=== PATIENT | female | born 1960 | race Caucasian/White ===

== ENCOUNTER 2019-04-10 19:24 | Inpatient (IN) | payer BC ==
[~2019-04-10] VITALS: Ht 162.6 cm; Wt 89.0 kg
[2019-04-10 19:57] VITALS: BP 102/65
[2019-04-10] MEDS ORDERED: LISI10TA5 PO (19:57)
[2019-04-10] MEDS ORDERED: SERT100T PO (19:57)
[2019-04-10] MEDS ORDERED: ASPI-1497 PO (19:57)
[2019-04-10] MEDS ORDERED: PANT40TA4 PO (19:57)
[2019-04-10] MEDS ORDERED: ATOR20TA65 PO (19:57)
[2019-04-10 20:14] VITALS: BP 102/65
[2019-04-10] MEDS ORDERED: CLONIDINE 0.1MG TABLET PO PRN (20:15)
[2019-04-10] MEDS ORDERED: HYDROCODONE/ACETAMINOPHEN 5/325MG TABLET PO PRN (20:15)
[2019-04-10] MEDS ORDERED: DOCUSATE SODIUM 250MG CAPSULE PO PRN (20:15)
[2019-04-10] MEDS ORDERED: ACETAMINOPHEN 325MG TABLET PO PRN (20:15)
[2019-04-10] MEDS ORDERED: ONDANSETRON HCL 4MG/2ML INJ IV PRN (20:15)
[2019-04-10] MEDS: ATORVASTATIN CALCIUM 40MG TABLET PO SCH (21:27)
[2019-04-10] MEDS ORDERED: NA PHOS,M-B/NA PHOS,DI-BA ENEMA 118ML PR PRN (21:30)
[2019-04-10] MEDS ORDERED: ZOLPIDEM TARTRATE 5MG TABLET PO PRN (21:30)
[2019-04-10] MEDS ORDERED: IPRATROPIUM/ALBUTEROL 0.5-3(2.5)MG/3ML NEB NEB PRN (21:30)
[2019-04-10] MEDS ORDERED: GUAIFENESIN 200MG/10ML SUGAR FREE UDC PO PRN (21:30)
[2019-04-10] MEDS ORDERED: NITROGLYCERIN 0.4MG TABLET SL SL PRN (21:30)
[2019-04-10 23:50] VITALS: BP 95/59
[2019-04-11] MEDS: MORPHINE SULFATE 2 MG/ML CPJ (NOT FOR IM USE) IV PRN ×3 (01:42→18:18)
[2019-04-11 04:00] VITALS: BP 105/72
[2019-04-11] MEDS: KETOROLAC 15MG/ML VIAL IV PRN ×2 (05:21→13:18)
[2019-04-11] MEDS ORDERED: PANTOPRAZOLE 40MG DR TABLET PO SCH (07:20)
[2019-04-11] MEDS ORDERED: METF-415 PO (07:26)
[2019-04-11 08:00] VITALS: BP 141/66
[2019-04-11 08:02] LABS: PROTHROMBIN TIME 11.3 sec (9.6-11.0)
[2019-04-11 08:03] LABS: BASOPHILS % 0.4 % (0.0-2.0); EOSINOPHILS % 1.2 % (0.0-5.0); HEMATOCRIT. 36.7 % (36.0-48.0); HEMOGLOBIN. 12.5 g/dL (12.0-16.0); LYMPHOCYTES % 10.1 % (20.0-50.0); MEAN CORPUSCULAR HEMOGLOBIN 31.2 pg (28.0-32.0); MEAN CORPUSCULAR VOLUME 91.4 fL (81.0-99.0); MEAN PLATELET VOLUME 9.2 fl (7.4-10.4); MONOCYTES % 12.3 % (2.0-8.0); PLATELET 311 x1000/uL (130-400); RED BLOOD CELL COUNT 4.02 mill/uL (4.2-5.4); RED CELL DISTRIBUTION WIDTH 13.6 % (11.6-14.6)
[2019-04-11 08:20] LABS: CHLORIDE 98 mEq/L (98-107)
[2019-04-11 08:33] LABS: LDL CHOLESTEROL 57 mg/dL (5-100); PHOSPHORUS 3.4 mg/dL (2.5-4.9)
[2019-04-11 08:35] LABS: HDL CHOLESTEROL 44 mg/dL (40-59)
[2019-04-11] MEDS ORDERED: ENOXAPARIN 40MG/0.4ML SYR SUBCUT SCH (09:30)
[2019-04-11] MEDS ORDERED: DEXTROSE 50% WATER 50ML SYRINGE IV PRN (09:30)
[2019-04-11] MEDS: FAMOTIDINE 20MG TABLET PO SCH ×2 (10:07→20:43)
[2019-04-11] MEDS: LISINOPRIL 10MG TABLET PO SCH (10:07)
[2019-04-11] MEDS: SERTRALINE HCL 100MG TABLET PO SCH (10:07)
[2019-04-11] MEDS: BLOOD SUGAR DIAGNOSTIC STRIP TEST SCH ×3 (12:45→20:43)
[2019-04-11] MEDS: INSULIN LISPRO 100 UNITS/ML SUBCUT SCH ×3 (13:26→20:43)
[2019-04-11] MEDS: ASPIRIN 325MG EC TABLET PO SCH (16:42)
[2019-04-11] MEDS: COLCHICINE 0.6MG TABLET PO SCH (16:42)
[2019-04-11 17:14] LABS: CLARITY URINE CLEAR (CLEAR); COLOR URINE YELLOW (YELLOW); KETONES URINE NEGATIVE (NEGATIVE); LEUKOCYTE ESTERASE URINE TRACE (NEGATIVE); NITRITE URINE NEGATIVE (NEGATIVE); OCCULT BLOOD URINE NEGATIVE (NEGATIVE); PROTEIN URINE NEGATIVE (NEGATIVE); SPECIFIC GRAVITY URINE 1.009 (1.005-1.030)
[2019-04-11 18:21] LABS: T4 FREE 1.36 ng/dL (0.76-1.46)
[2019-04-11 18:44] LABS: VITAMIN B12 SERUM 1088 pg/mL (211-911)
[2019-04-11 20:00] VITALS: BP 102/72
[2019-04-11] MEDS ORDERED: ALPRAZOLAM 0.25 MG TABLET PO PRN (20:15)
[2019-04-11] MEDS: ATORVASTATIN CALCIUM 40MG TABLET PO SCH (20:43)
[2019-04-11] MEDS ORDERED: DIPHENHYDRAMINE 25MG CAPSULE PO PRN (21:00)
[2019-04-11] MEDS ORDERED: BISACODYL 10MG SUPP PR PRN (21:00)
[2019-04-11] MEDS ORDERED: DOCUSATE SODIUM 100MG CAPSULE PO SCH (21:00)
[2019-04-12] VITALS (35 sets, daily range): BP systolic 88–130; BP diastolic 44–80
[2019-04-12] MEDS ORDERED: NOREPINEPHRINE 4 MG in DEXT 5% WATER 246 ML IV SCH (06:00)
[2019-04-12] MEDS ORDERED: EPINEPHRINE 4 MG in DEXT 5% WATER 246 ML IV SCH (06:00)
[2019-04-12 06:15] LABS: INR 1.1; PROTHROMBIN TIME 11.4 sec (9.6-11.0)
[2019-04-12 06:20] LABS: BASOPHILS % 0.7 % (0.0-2.0); EOSINOPHILS % 2.3 % (0.0-5.0); HEMATOCRIT. 35.5 % (36.0-48.0); HEMOGLOBIN. 12.4 g/dL (12.0-16.0); LYMPHOCYTES % 19.5 % (20.0-50.0); MEAN CORPUSCULAR VOLUME 91.5 fL (81.0-99.0); MEAN PLATELET VOLUME 8.9 fl (7.4-10.4); MONOCYTES % 12.5 % (2.0-8.0); PLATELET 365 x1000/uL (130-400); RED BLOOD CELL COUNT 3.88 mill/uL (4.2-5.4); RED CELL DISTRIBUTION WIDTH 13.6 % (11.6-14.6)
[2019-04-12] MEDS: BLOOD SUGAR DIAGNOSTIC STRIP TEST SCH ×3 (06:21→20:30)
[2019-04-12 06:28] LABS: CHLORIDE 101 mEq/L (98-107)
[2019-04-12] MEDS ORDERED: SKIN ADHESIVE 0.7 GM EA TOP ONE (06:49)
[2019-04-12] MEDS ORDERED: BUPIVACAINE/EPINEPH/PF 0.25%/0.0005 10ML ONE (06:49)
[2019-04-12] MEDS ORDERED: NORMAL SALINE 0.9% 10 ML SYR ONE (06:49)
[2019-04-12] MEDS ORDERED: BACITRACIN 50,000 UNITS/VIAL ONE (06:49)
[2019-04-12] MEDS ORDERED: MIDAZOLAM HCL 5 MG/ML VIAL ONE (07:06)
[2019-04-12] MEDS ORDERED: LEVOTHYROXINE SODIUM 25MCG TABLET PO SCH (07:20)
[2019-04-12] MEDS: INSULIN LISPRO 100 UNITS/ML SUBCUT SCH ×4 (07:50→20:55)
[2019-04-12] MEDS ORDERED: SODIUM CHLORIDE 0.9% 500 ML IV PRN (08:25)
[2019-04-12] MEDS ORDERED: ONDANSETRON HCL 4MG/2ML INJ IV PRN (08:30)
[2019-04-12] MEDS: LISINOPRIL 10MG TABLET PO SCH (09:00)
[2019-04-12 09:22] LABS: BG BASE EXCESS 0.5 mmol/L (-2.0-2.0); BG CARBOXYHEMOGLOBIN 0.6 % (0.5-1.5); BG DEOXYHEMOGLOBIN 2.6 % (0.0-5.0); BG FRACTION INSPIRED OXYGEN 60; BG HCO3 ACT 25.6 mmol/L (22.0-26.0); BG METHEMOGLOBIN 0.3 % (0.0-1.5); BG OXYGEN SATURATION 97.4 % (92.0-98.5); BG OXYHEMOGLOBIN 96.5 % (94.0-97.0); BG PCO2 42.7 mmHg (35.0-45.0); BG PH 7.395 (7.350-7.450); BG PO2 106.6 mmHg (75.0-100.0); BG SAMPLE SITE RIGHT BRACHIAL; BG TOTAL HEMOGLOBIN 12.4 g/dL (12.0-18.0); BG VENT MODE MASK - SIMPLE
[2019-04-12] MEDS: DEXT 5%/0.45% NACL 1000ML 1,000 ML IV SCH ×2 (09:28→20:54)
[2019-04-12] MEDS: MORPHINE SULFATE 2 MG/ML CPJ (NOT FOR IM USE) IV PRN ×2 (10:08→14:02)
[2019-04-12] MEDS: MAGNESIUM HYDROXIDE 400MG/5ML 30ML UDC PO SCH ×5 (11:53→23:44)
[2019-04-12] MEDS: SERTRALINE HCL 100MG TABLET PO SCH (11:54)
[2019-04-12] MEDS: FAMOTIDINE 20MG TABLET PO SCH ×2 (11:54→20:53)
[2019-04-12] MEDS: DOCUSATE SODIUM 100MG CAPSULE PO SCH ×2 (11:54→17:51)
[2019-04-12] MEDS: ASPIRIN 325MG EC TABLET PO SCH (11:54)
[2019-04-12] MEDS: IPRATROPIUM/ALBUTEROL 0.5-3(2.5)MG/3ML NEB HHN SCH ×3 (12:14→21:13)
[2019-04-12] MEDS: CEFAZOLIN 1000MG PREMIX 50 ML IV SCH ×2 (13:43→21:04)
[2019-04-12] MEDS: COLCHICINE 0.6MG TABLET PO SCH (17:51)
[2019-04-12] MEDS: ACETAMINOPHEN WITH CODEINE 300/30MG TABLET PO PRN (19:37)
[2019-04-12] MEDS: DIPHENHYDRAMINE 50MG/ML VIAL IV PRN (20:53)
[2019-04-12] MEDS: ATORVASTATIN CALCIUM 40MG TABLET PO SCH (20:53)
[2019-04-13] VITALS (30 sets, daily range): BP systolic 94–133; BP diastolic 43–79
[2019-04-13] MEDS: IPRATROPIUM/ALBUTEROL 0.5-3(2.5)MG/3ML NEB HHN SCH ×6 (00:05→20:25)
[2019-04-13] MEDS: MAGNESIUM HYDROXIDE 400MG/5ML 30ML UDC PO SCH ×2 (04:07→08:40)
[2019-04-13] MEDS: MORPHINE SULFATE 2 MG/ML CPJ (NOT FOR IM USE) IV PRN (04:34)
[2019-04-13 04:59] LABS: BASOPHILS % 0.5 % (0.0-2.0); EOSINOPHILS % 0.1 % (0.0-5.0); HEMOGLOBIN. 12.1 g/dL (12.0-16.0); LYMPHOCYTES % 14.5 % (20.0-50.0); MEAN CORPUSCULAR HEMOGLOBIN 30.7 pg (28.0-32.0); MEAN CORPUSCULAR VOLUME 91.3 fL (81.0-99.0); MEAN PLATELET VOLUME 8.4 fl (7.4-10.4); MONOCYTES % 9.9 % (2.0-8.0); PLATELET 395 x1000/uL (130-400); RED BLOOD CELL COUNT 3.94 mill/uL (4.2-5.4); RED CELL DISTRIBUTION WIDTH 13.5 % (11.6-14.6)
[2019-04-13] MEDS: CEFAZOLIN 1000MG PREMIX 50 ML IV SCH ×2 (05:16→13:34)
[2019-04-13 05:18] LABS: CHLORIDE 103 mEq/L (98-107)
[2019-04-13] MEDS: BLOOD SUGAR DIAGNOSTIC STRIP TEST SCH ×4 (07:50→20:25)
[2019-04-13] MEDS: DOCUSATE SODIUM 100MG CAPSULE PO SCH ×2 (08:40→17:00)
[2019-04-13] MEDS: ASPIRIN 325MG EC TABLET PO SCH (08:40)
[2019-04-13] MEDS: FAMOTIDINE 20MG TABLET PO SCH ×2 (08:41→20:46)
[2019-04-13] MEDS: COLCHICINE 0.6MG TABLET PO SCH (08:41)
[2019-04-13] MEDS: SERTRALINE HCL 100MG TABLET PO SCH (08:41)
[2019-04-13] MEDS: INSULIN LISPRO 100 UNITS/ML SUBCUT SCH ×4 (08:48→20:45)
[2019-04-13] MEDS: LISINOPRIL 10MG TABLET PO SCH (08:55)
[2019-04-13] MEDS: ACETAMINOPHEN 325MG TABLET PO PRN (18:04)
[2019-04-13] MEDS: ATORVASTATIN CALCIUM 40MG TABLET PO SCH (20:46)
[2019-04-13] MEDS: DIPHENHYDRAMINE 50MG/ML VIAL IV PRN (20:46)
[2019-04-14] VITALS (22 sets, daily range): BP systolic 96–133; BP diastolic 45–96
[2019-04-14] MEDS: IPRATROPIUM/ALBUTEROL 0.5-3(2.5)MG/3ML NEB HHN SCH ×7 (00:15→23:42)
[2019-04-14] MEDS: MORPHINE SULFATE 2 MG/ML CPJ (NOT FOR IM USE) IV PRN (01:14)
[2019-04-14] MEDS: ACETAMINOPHEN 325MG TABLET PO PRN (05:34)
[2019-04-14 06:25] LABS: BASOPHILS % 1.1 % (0.0-2.0); EOSINOPHILS % 3.9 % (0.0-5.0); HEMATOCRIT. 37.6 % (36.0-48.0); HEMOGLOBIN. 12.8 g/dL (12.0-16.0); LYMPHOCYTES % 36.2 % (20.0-50.0); MEAN CORPUSCULAR HEMOGLOBIN 31.4 pg (28.0-32.0); MEAN CORPUSCULAR VOLUME 92.5 fL (81.0-99.0); MEAN PLATELET VOLUME 9.3 fl (7.4-10.4); MONOCYTES % 9.5 % (2.0-8.0); NEUTROPHILS % 49.3 % (40.0-76.0); PLATELET 372 x1000/uL (130-400); RED BLOOD CELL COUNT 4.06 mill/uL (4.2-5.4); RED CELL DISTRIBUTION WIDTH 13.6 % (11.6-14.6)
[2019-04-14 07:40] LABS: CHLORIDE 106 mEq/L (98-107)
[2019-04-14] MEDS: BLOOD SUGAR DIAGNOSTIC STRIP TEST SCH ×4 (08:15→20:35)
[2019-04-14] MEDS: FAMOTIDINE 20MG TABLET PO SCH ×2 (08:29→20:41)
[2019-04-14] MEDS: COLCHICINE 0.6MG TABLET PO SCH ×2 (08:29→17:36)
[2019-04-14] MEDS: SERTRALINE HCL 100MG TABLET PO SCH (08:29)
[2019-04-14] MEDS: DOCUSATE SODIUM 100MG CAPSULE PO SCH ×2 (08:30→17:00)
[2019-04-14] MEDS: INSULIN LISPRO 100 UNITS/ML SUBCUT SCH ×4 (08:30→20:41)
[2019-04-14] MEDS: ACETAMINOPHEN WITH CODEINE 300/30MG TABLET PO PRN ×2 (08:30→15:49)
[2019-04-14] MEDS: LISINOPRIL 10MG TABLET PO SCH (08:30)
[2019-04-14] MEDS: ASPIRIN 325MG EC TABLET PO SCH (08:36)
[2019-04-14] MEDS: ATORVASTATIN CALCIUM 40MG TABLET PO SCH (20:41)
[2019-04-14] MEDS: DIPHENHYDRAMINE 50MG/ML VIAL IV PRN (23:49)
[2019-04-15] VITALS (7 sets, daily range): BP systolic 113–127; BP diastolic 65–80
[2019-04-15] MEDS: IPRATROPIUM/ALBUTEROL 0.5-3(2.5)MG/3ML NEB HHN SCH (04:01)
[2019-04-15] MEDS: BLOOD SUGAR DIAGNOSTIC STRIP TEST SCH (06:47)
[2019-04-15 07:26] LABS: BASOPHILS % 1.2 % (0.0-2.0); EOSINOPHILS % 4.9 % (0.0-5.0); HEMATOCRIT. 36.3 % (36.0-48.0); HEMOGLOBIN. 12.6 g/dL (12.0-16.0); LYMPHOCYTES % 32.9 % (20.0-50.0); MEAN CORPUSCULAR HEMOGLOBIN 31.6 pg (28.0-32.0); MEAN CORPUSCULAR VOLUME 91.4 fL (81.0-99.0); MEAN PLATELET VOLUME 8.2 fl (7.4-10.4); MONOCYTES % 10.9 % (2.0-8.0); NEUTROPHILS % 50.1 % (40.0-76.0); PLATELET 450 x1000/uL (130-400); RED BLOOD CELL COUNT 3.97 mill/uL (4.2-5.4); RED CELL DISTRIBUTION WIDTH 13.9 % (11.6-14.6)
[2019-04-15 08:10] LABS: CHLORIDE 104 mEq/L (98-107)
[2019-04-15] MEDS: DOCUSATE SODIUM 100MG CAPSULE PO SCH (08:13)
[2019-04-15] MEDS: COLCHICINE 0.6MG TABLET PO SCH (08:13)
[2019-04-15] MEDS: SERTRALINE HCL 100MG TABLET PO SCH (08:13)
[2019-04-15] MEDS: FAMOTIDINE 20MG TABLET PO SCH (08:14)
[2019-04-15] MEDS: INSULIN LISPRO 100 UNITS/ML SUBCUT SCH (08:14)
[2019-04-15] MEDS: LISINOPRIL 10MG TABLET PO SCH (08:14)
[2019-04-15] MEDS ORDERED: ASPIRIN 81MG EC TABLET PO SCH (09:00)
[2019-04-15] MEDS ORDERED: ASPIRIN 325MG EC TABLET PO SCH (09:00)
== END 2019-04-15 13:30 | disposition home or self-care (01) | DRG 270 ==
LOC: 6WST 19:24 → CVICU 04-12 08:59 → 3WST 04-14 23:23
PROVIDERS: ADMIT Internal Medicine Critical Care Medicine; ATTEND Internal Medicine
PROC: 0W9D00Z Drainage of Pericardial Cavity with Drainage Device, Open Approach (ICD-10-PCS; principal; 2019-04-12)
PROC: 02BN0ZX Excision of Pericardium, Open Approach, Diagnostic (ICD-10-PCS; 2019-04-12)
PROC: B24CZZ4 Ultrasonography of Pericardium, Transesophageal (ICD-10-PCS; 2019-04-12)
DX: I31.3 Pericardial effusion (noninflammatory) (principal); J96.00 Acute respiratory failure, unspecified whether with hypoxia or hypercapnia; E87.1 Hypo-osmolality and hyponatremia; E46 Unspecified protein-calorie malnutrition; J98.11 Atelectasis; E78.5 Hyperlipidemia, unspecified; I48.0 Paroxysmal atrial fibrillation; E11.9 Type 2 diabetes mellitus without complications; I25.10 Atherosclerotic heart disease of native coronary artery without angina pectoris; F32.9 Major depressive disorder, single episode, unspecified; E78.00 Pure hypercholesterolemia, unspecified; F17.210 Nicotine dependence, cigarettes, uncomplicated; I11.9 Hypertensive heart disease without heart failure; J45.909 Unspecified asthma, uncomplicated; Z68.33 Body mass index [BMI] 33.0-33.9, adult; Z79.899 Other long term (current) drug therapy; Z79.01 Long term (current) use of anticoagulants; Z79.4 Long term (current) use of insulin; Z79.82 Long term (current) use of aspirin; Z82.49 Family history of ischemic heart disease and other diseases of the circulatory system
CPT/HCPCS: 36415; 36600; 71045; 80048; 80053; 80061; 81003; 82375; 82607; 82805; 82962; 83036; 83615; 83735; 84100; 84439; 84443; 85025; 85379; 85651; 86038; 86850; 86900; 86920; 87075; 87102; 87116; 88108; 88305; 88312; 93005; 93306; 93970; 94640; 97116; 97162; 97167; 97530; 97535; J0171; J0690; J1200; J1650; J1815; J1885; J2250; J2270; J3490; J7060